=== PATIENT | female | born 1950 | race Two or more races ===

== ENCOUNTER 2020-09-19 13:41 | Outpatient (CLI) | payer OTHER | END 2020-09-19 16:36 | disposition home or self-care (01) | LOC: OFIC 805 13:41 | PROVIDERS: ATTEND Otolaryngology Otology & Neurotology | DX: H65.21 Chronic serous otitis media, right ear (principal); H61.21 Impacted cerumen, right ear; H93.8X1 Other specified disorders of right ear ==